=== PATIENT | female | born 1970 | race Caucasian/White ===

== ENCOUNTER 2019-02-10 14:35 | Emergency (ER) | payer SELFPAY ==
[~2019-02-10] VITALS: Ht 152.4 cm; Wt 97.5 kg
[2019-02-10 14:44] VITALS: Ht 152.4 cm; Wt 97.5 kg
[2019-02-10 18:20] VITALS: BP 131/98
== END 2019-02-10 18:20 | disposition home or self-care (01) ==
LOC: ED 14:35
DX: J45.909 Unspecified asthma, uncomplicated (principal); B34.9 Viral infection, unspecified; I10 Essential (primary) hypertension; E11.9 Type 2 diabetes mellitus without complications; Z98.890 Other specified postprocedural states; Z87.442 Personal history of urinary calculi
CPT/HCPCS: J7030; J7512; J7613; J7644; Q0092